=== PATIENT | female | born 1945 | race Caucasian/White ===

== ENCOUNTER 2024-12-25 21:19 | Observation (INO) | payer OTHER, SELFPAY ==
[2024-12-25] VITALS (7 sets, daily range): BP systolic 148–167; BP diastolic 65–134; BMI 35.9
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
[2024-12-25] MEDS: TYLENOL 650 MG PO (17:38)
[2024-12-25 18:14] LABS: Hematocrit 37.5 % (37.0-47.0); Hemoglobin 12.2 g/dL (12.0-16.0); Mean Corp Hgb Conc. 32.5 g/dL (33.0-37.0); Mean Corpuscular Volume 84.7 fL (81.0-99.0); Nucleated Red Blood Cells % 0 %; Platelet Count 302 10^3/uL (130-400); Red Cell Dist. Width 14.7 % (11.5-14.5)
[2024-12-25 18:34] LABS: Blood Urea Nitrogen 22 mg/dl (7-17); Calcium 10.7 mg/dl (8.4-10.2); Carbon Dioxide 26 mmol/L (22-30); Chloride 101 mmol/L (98-107); Estimated Creatinine Clearance 47 ml/min; Glucose 92 mg/dl (70-99); Sodium 136 mmol/L (135-145); eGFR 45.76
[2024-12-25 18:58] LABS: TSH 2.44 uIU/ml (0.47-4.68)
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
[2024-12-26 07:11] VITALS: BP 162/72
[2024-12-26 08:42] LABS: Hematocrit 31.8 % (37.0-47.0); Hemoglobin 10.1 g/dL (12.0-16.0); Mean Corp Hgb Conc. 31.8 g/dL (33.0-37.0); Mean Corpuscular Volume 85.7 fL (81.0-99.0); Platelet Count 264 10^3/uL (130-400); Red Cell Dist. Width 14.8 % (11.5-14.5)
[2024-12-26] MEDS: DESENEX/MITRAZOL/ZEASORB 1 APPLIC TOPICAL ×2 (08:58→19:41)
[2024-12-26] MEDS: DIOVAN 320 MG PO (08:58)
[2024-12-26] MEDS: NEURONTIN 200 MG PO ×2 (08:58→19:41)
[2024-12-26] MEDS: TOPROL XL 25 MG PO (08:58)
[2024-12-26] MEDS: PERCOCET 5/325 1 TABLET PO ×2 (09:02→19:58)
--- NOTE | 2024-12-26 09:56 | PTCARENOTE ---
Patient refusing to be turned. Educated patient on risk of pressure ulcers. Patient confirms she understand the risks. PW removed by this RN.
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
--- NOTE | 2024-12-26 11:14 | WOUNDNOTE ---
SCALP DRESSING-SEE NOTE
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
[2024-12-26 12:14] LABS: Urine Character Clear (Clear)
[2024-12-26 12:28] LABS: Urine Squamous Cell >30 /LPF (Few)
[2024-12-26 12:29] LABS: Urine Red Blood Cell 0-2 /HPF (0-2); Urine White Cell 0-2 /HPF (0-5)
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
[2024-12-26 15:31] VITALS: BP 149/61
[2024-12-26] MEDS: DYAZIDE 1 CAPSULE PO (16:57)
[2024-12-26] MEDS: SYNTHROID 150 MCG PO (16:57)
[2024-12-26] MEDS: MIRALAX 17 GRAMS PO (16:58)
--- NOTE | 2024-12-26 17:01 | PTCARENOTE ---
Patient refused lovenox despite education provided on risk of blood clots.
[2024-12-26 23:50] VITALS: BP 154/79
[2024-12-27] MEDS: SYNTHROID 150 MCG PO (06:20)
[2024-12-27] MEDS: PERCOCET 5/325 1 TABLET PO ×3 (06:20→19:50)
[2024-12-27 07:35] VITALS: BP 122/93
[2024-12-27] MEDS: DESENEX/MITRAZOL/ZEASORB 1 APPLIC TOPICAL ×2 (08:24→19:47)
[2024-12-27] MEDS: NEURONTIN 200 MG PO ×2 (08:25→19:47)
[2024-12-27] MEDS: TOPROL XL 25 MG PO (08:25)
[2024-12-27] MEDS: HYDROPHOR 1 APPLIC TOPICAL (08:26)
[2024-12-27] MEDS: DIOVAN 320 MG PO (08:26)
[2024-12-27] MEDS: DYAZIDE 1 CAPSULE PO (08:26)
--- NOTE | 2024-12-27 08:58 | VNURNOTE ---
Chart reviewed. Rec'ed updates from CM. Patient does not have a PCP. CM aware [facility] cannot accept or start services until pt establishes PCP. Per CM note, pt was given PCP list. Suzy in [facility] Intake updated.
[2024-12-27 09:13] LABS: Blood Urea Nitrogen 21 mg/dl (7-17); Calcium 10.1 mg/dl (8.4-10.2); Carbon Dioxide 29 mmol/L (22-30); Chloride 100 mmol/L (98-107); Estimated Creatinine Clearance 46 ml/min; Glucose 94 mg/dl (70-99); Magnesium 1.4 mg/dl (1.6-2.3); Potassium 3.9 mmol/L (3.5-5.1); Sodium 132 mmol/L (135-145); eGFR 45.76
--- NOTE | 2024-12-27 09:21 | PTOTSP ---
chart reviewed, spoke at length with pt. pt in bed upon arrival, not willing to have HOB raised due to her 'neck'. pt motivated to return home, though with interview concern with pt's home set up. pt has been bed bound for ~6 months, though wants to
go to [place] for proton therapy. pt reports she is able to complete sponge baths and assistance needed for toileting. pt reports she needs a álvaro lift, shower chair, hospital bed. per PT, case management has been notified and aware of pt's needs. no
acute OT goals identified at this time, will sign off.
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
[2024-12-27 15:10] VITALS: BP 114/60
[2024-12-27] MEDS: HYDROCORTISONE 1% CREAM 1 APPLIC TOPICAL (15:19)
--- NOTE | 2024-12-27 17:12 | PTCARENOTE ---
Pt AAO x3, BENJAMIN; legs weak. Needs much encouragement to participate in q 2 hr turning. Pt anxious at times. VSS. On room air- pulse ox 96%, no SOB noted. Abd obese, soft, mikhail PO well. Incont BM. Incont large amts ricki urine. Posterior head
dsg D/I; pt occ c/o 'headache'-good effect with Percocet PO. Resting in bed at present. Will continue to monitor.
[2024-12-27 23:00] VITALS: BP 133/76
[2024-12-28] MEDS: PERCOCET 5/325 1 TABLET PO ×3 (05:53→21:03)
[2024-12-28] MEDS: SYNTHROID 150 MCG PO (05:53)
[2024-12-28 08:16] VITALS: BP 147/59
[2024-12-28 08:40] LABS: Blood Urea Nitrogen 22 mg/dl (7-17); Calcium 10.3 mg/dl (8.4-10.2); Carbon Dioxide 28 mmol/L (22-30); Chloride 101 mmol/L (98-107); Estimated Creatinine Clearance 46 ml/min; Glucose 100 mg/dl (70-99); Potassium 3.9 mmol/L (3.5-5.1); Sodium 134 mmol/L (135-145); eGFR 45.76
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
[2024-12-28] MEDS: DYAZIDE 1 CAPSULE PO (09:43)
[2024-12-28] MEDS: NEURONTIN 200 MG PO ×2 (09:43→21:04)
[2024-12-28] MEDS: DIOVAN 320 MG PO (09:43)
[2024-12-28] MEDS: HYDROPHOR 1 APPLIC TOPICAL (09:44)
[2024-12-28] MEDS: TOPROL XL 25 MG PO (09:44)
[2024-12-28] MEDS: DESENEX/MITRAZOL/ZEASORB 1 APPLIC TOPICAL ×2 (09:59→21:04)
--- NOTE | 2024-12-28 11:12 | CM ---
Addendum entered by Otoniel Ashton 12/28/24 11:16:
CM spoke w/ patient's sister, Rosalba who confirmed w/ CM that [facility] because in order for patient to receive cancer treatment she needed to be home. CM reviewed resources provided to patient thus far and
DME order. Rosalba stated patient would need home care arranged before she is discharged home. CM explained that patient does not have a PCP to follow and sign orders, PCP list was also provided. Rosalba asking CM how would patient get to her appt,
CM advised for Rosalba and other sister to assist w/ planning as transportation options/resources are limited, besides the [facility] transport that patient has to apply for.
Original Note:
CM faxed updated note to [facility] regarding need for w/c use.
CM updated patient bedside regarding DME order. Patient stated she called [facility], a nurse is planning to visit her to complete an assessment today at 12 pm. Patient stated she is currently speaking w/ the impound lot about allowing her
other sister to retrieve her car w/ her w/c in it as they were asking for her to retrieve her car unfortunately she cannot. CM provided residency clinic information, instructing patient to call for an appt so home care is able to be arranged.
Plan: Home w/ DME, hopefully [facility] for caregiver support
--- NOTE | 2024-12-28 14:25 | WOUNDNOTE ---
[facility] RN NOTE: Patient visited to assess and complete wound care to scalp. Chart and orders reviewed. Scalp wound with thick slough, large scattered area of dry eschar and pink raised wound. Wound care completed as ordered and patient tolerated well.
Plan is home with home care and [facility]. TT CM as discharge orders were updated. CORONA Martines updated. Will follow as needed.
--- NOTE | 2024-12-28 16:07 | CM ---
Spoke w/ patient bedside, patient confirmed assessment w/ [facility] was successful. Patient stated she was told an aide can start on Thursday. CM called [facility], spoke w/ Tootie/driller and reamer, confirmed that patient has requested an aide
Mon-Thu from 12-19. Confirmed that an aide is on standby for Thursday for patient. Confirmed that aide can transport patient for errands, medical appts, etc, however, patient will need to pay a mileage rate if aide's car is to be used. Tootie asking for
CM to confirm patient's d/c for Thursday so aide can meet patient at home by 11 am on Thursday.
Spoke w/ Alex/[employer], confirmed delivery for equipment for tomorrow as patient is requesting delivery then in order for her friend to be at her apartment.
CM encouraged patient to make an appt w/ [facility] clinic to see a PCP so [facility] can service her. Her aide is able to transport her to appt.
Plan: Home w/ DME and [facility] aide, planning for Thursday
[2024-12-28 16:31] VITALS: BP 136/64
[2024-12-28 23:14] VITALS: BP 136/76
[2024-12-29] MEDS: PERCOCET 5/325 1 TABLET PO ×2 (03:23→09:30)
[2024-12-29] MEDS: SYNTHROID 150 MCG PO (05:49)
[2024-12-29 07:20] VITALS: BP 141/60
[2024-12-29 08:19] LABS: Blood Urea Nitrogen 24 mg/dl (7-17); Calcium 10.3 mg/dl (8.4-10.2); Carbon Dioxide 29 mmol/L (22-30); Chloride 99 mmol/L (98-107); Estimated Creatinine Clearance 46 ml/min; Glucose 96 mg/dl (70-99); Potassium 3.9 mmol/L (3.5-5.1); Sodium 132 mmol/L (135-145); eGFR 45.76
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
[2024-12-29] MEDS: NEURONTIN 200 MG PO ×2 (09:14→19:44)
[2024-12-29] MEDS: DIOVAN 320 MG PO (09:14)
[2024-12-29] MEDS: DYAZIDE 1 CAPSULE PO (09:54)
[2024-12-29] MEDS: TOPROL XL 25 MG PO (09:54)
[2024-12-29] MEDS: HYDROPHOR 1 APPLIC TOPICAL (09:54)
[2024-12-29] MEDS: DESENEX/MITRAZOL/ZEASORB 1 APPLIC TOPICAL ×2 (09:54→19:54)
--- NOTE | 2024-12-29 12:32 | VNURNOTE ---
Chart reviewed. Home Health Liaison met with patient at bedside to discuss [facility] nurse/therapy, visits, schedule and homebound status. Patient is agreeable and understands that visits at home will be 2-3 x per week to assess and teach medical
management. Patient does not have a PCP. This author helped pt arrange [facility] appt for 01/04. Patient will arrange [facility] to transport her to appt. Patient is aware that [facility] will see her after PCP appt occurs. She is
aware that [facility] will contact them within a few days after PCP appt. Noted that DC is tentatively Fri. Provided contact number for [facility].
PM [facility] referral updated in [facility].
[2024-12-29] MEDS: SENOKOT-S 1 TABLET PO (13:09)
[2024-12-29] MEDS: ROXICODONE 10 MG PO ×2 (14:58→20:00)
[2024-12-29 15:33] VITALS: BP 127/54
[2024-12-29 23:00] VITALS: BP 133/65
[2024-12-30] MEDS: ROXICODONE 10 MG PO ×2 (01:40→07:43)
[2024-12-30] MEDS: SYNTHROID 150 MCG PO (05:28)
[2024-12-30] MEDS: PERCOCET 5/325 1 TABLET PO (05:28)
[2024-12-30] MEDS: DYAZIDE 1 CAPSULE PO (07:40)
[2024-12-30] MEDS: TOPROL XL 25 MG PO (07:40)
[2024-12-30] MEDS: NEURONTIN 200 MG PO (07:40)
[2024-12-30] MEDS: DIOVAN 320 MG PO (07:40)
[2024-12-30] MEDS: HYDROPHOR 1 APPLIC TOPICAL (07:45)
[2024-12-30] MEDS: DESENEX/MITRAZOL/ZEASORB 1 APPLIC TOPICAL (07:45)
[2024-12-30 08:02] LABS: Blood Urea Nitrogen 32 mg/dl (7-17); Calcium 10.3 mg/dl (8.4-10.2); Carbon Dioxide 30 mmol/L (22-30); Chloride 98 mmol/L (98-107); Estimated Creatinine Clearance 37 ml/min; Glucose 110 mg/dl (70-99); Potassium 4.3 mmol/L (3.5-5.1); Sodium 135 mmol/L (135-145); eGFR 35.01
[2024-12-30 08:32] VITALS: BP 105/47
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
--- NOTE | 2024-12-30 10:26 | PTCARENOTE ---
12/30- Patient c/o 11/25 burning stabbing pains in her head. She has metastatic squamous cell lesions throughout scalp. Administered Oxycodone 10mg PO Q6 PRN as ordered, but notified physician for pain management. Patient set to be discharged
today. Educated patient on followup care and questions for her Oncologist as well as pain management questions. She verbalized understanding. She remains anxious but cooperative.
[2024-12-30] MEDS: TYLENOL 1000 MG PO (12:05)
[2024-12-30] MEDS: ROXICODONE 20 MG PO (12:06)
--- NOTE | 2024-12-30 12:14 | CM ---
Addendum entered by Allyn Ward 12/30/24 12:26:
Plan; Home with [facility]
Original Note:
member certification manager reviewed patient's chart and met with patient and patient is for discharge to home today, plan is to home with [facility] and [facility], 11am to 3pm, Mon to Thursday, DME has been delivered by [facility], information on [facility] transport
also provided, caregiver also to provide transport to appointments. 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
Plan; Home today with DME from [facility], private caregivers from [facility], ambulance transport to home.
[2024-12-30 14:00] VITALS: BP 102/57
== END 2024-12-30 14:34 | disposition home health service (06) ==
LOC: 4 WEST ACU 21:19
PROVIDERS: Internal Medicine; ADMITTING PHYSICIAN Internal Medicine; ATTENDING PHYSICIAN Internal Medicine; EMERGENCY PHYSICIAN Emergency Medicine
DX: R26.2 Difficulty in walking, not elsewhere classified (principal); C80.1 Malignant (primary) neoplasm, unspecified; Z79.899 Other long term (current) drug therapy; I10 Essential (primary) hypertension; E03.9 Hypothyroidism, unspecified; G56.00 Carpal tunnel syndrome, unspecified upper limb; G89.29 Other chronic pain; Z79.890 Hormone replacement therapy; Z79.891 Long term (current) use of opiate analgesic; F32.A Depression, unspecified
CPT/HCPCS: 80048; 81003; 81015; 83735; 84443; 85025; 85027; 87070; 87147; 93971; 99285; G0378